=== PATIENT | female | born 1970 | race Caucasian/White ===

== ENCOUNTER 2016-11-25 13:48 | Emergency (ER) | payer SELFPAY ==
[2016-11-25 14:29] VITALS: BP 113/66; PULSE 85; TEMP 99.5; BMI 3411.0
--- NOTE | 2016-11-25 14:33 | EDPRACDOC ---
- General Information Chief Complaint: Toothache Stated Complaint: ABSCESS LIKE AREA LT LOWER JAW Time Seen by Provider: 11/25/16 14:28 Home Medications: Home Medications Hydrocodone/Acetaminophen [Lortab 5-325 mg Tablet] 1 each PO Q4H PRN #15 tablet 09/29/16 Ketorolac Tromethamine [Toradol] 10 mg PO Q6H PRN #20 tab 09/29/16 Amoxicillin Trihydrate [Amoxicillin] 500 mg PO TID #21 tab 11/25/16 Hydrocodone Bit/Acetaminophen [Hydrocodon-Acetaminophen 5-325] 1 tab PO Q6 PRN # 15 tab 11/25/16 Allergies/Adverse Reactions: Allergies Allergy/AdvReac Type Severity Reaction Status Date / Time No Known Allergies Allergy Verified 09/29/16 05:10 - History of Present Illness Onset: 2 DAYS HPI: PT COMPLAINS OF PAIN IN LEFT LOWER TOOTH AND JAW WITH SWELLING, WORSENING X 2 DAYS, USING MOTRIN WITHOUT RELIEF, NO FEVER OR CHILLS, NO N/V/D. Pain Severity: Reports: Severe Relevant History of: Reports: None Modifying Factors: improves with: Heat, Cold, Chewing. worse with: Anagelsics Associated Signs and Symptoms: Denies: Fever, Chills, Earache, Sore Throat ED Past Medical History - History Reviewed Yes Nurses notes reviewed and agree except as marked - Patient Medical History Psychological History: Reports: Depression - Social Medical History Smoking Status: Heavy tobacco smoker (5 or more cigarettes/day or daily pipe/ cigar) ETOH: Social Substance Abuse: None EDM Review of Systems - Review of Systems Constitutional: negative: Chills, Fever Eyes: negative: Blurred Vision, Double Vision Ears: negative: Drainage Throat: negative: Pain Nose: negative: Congestion, Discharge Mouth: Tooth Pain Respiratory: negative: Cough, Shortness of Breath, Wheezing Cardiovascular: negative: Chest Pain Gastrointestinal: negative: Diarrhea, Nausea, Pain, Vomiting Genitourinary: negative: Dysuria, Frequency Neurological: negative: Dizziness, Headache, Numbness, Weakness Musculoskeletal: No Symptoms Reported Integumentary: No Symptoms Reported - Physical Exam Constitutional: Alert (Awake), No apparent distress Oriented to: Time, Person, Place Last recorded Vital Signs: Last Vital Signs Temp 99.5 F 11/25/16 14:28 Pulse 85 11/25/16 14:28 Resp 18 11/25/16 14:28 BP 113/66 11/25/16 14:28 Pulse Ox 94 11/25/16 14:28 Oxygen Pulse Oxygen Saturation 94 O2 Device Room Air Oxygen Flow Rate Fraction of Inspired Oxygen ( FIO2) - HEENT Head: Normal ( normocephalic) Eye Exam: Normal (PERRL, EOMI, Sclera white) Oropharynx: Normal (Pharynx:Moist without exudate,Gums-no swelling) Tympanic Membrane: Normal ENT EAC: Normal TMJ: Normal Nose: No Symptoms Reported (septum midline) Neck: Normal (FROM, trachea at midline) - Respiratory/Cardiovascular Respiratory: Normal - CTA (BBS clear to auscultation without adventitious sounds ) Cardiovascular: Normal (RRR without murmur, gallop or rub) - Integumentary Skin: Normal, Warm, Dry Lymphatics: Normal (no adenopathy) - Neurologic Memory Impaired: Normal Motor Function: Normal (Normal tone, Pulses 2+ No cyanosis or edema, FROM) Cranial Nerve: Normal (CN II-X11 intact sensation, strength 5/5) Cerebellar: Normal Mood Description: Normal Perception: Normal ED Tooth Problem Exam - HEENT Face: Swelling, Tender Teeth: Left: Molar-2 Lower, Molar-3 Lower Gingiva: Tender, Swelling, Red. negative: Pointing, Draining, Necrotizing Palate: Normal. negative: Soft, Hard Mouth Range of Motion: Normal Sinuses: Normal Oropharynx: Normal Neck: Normal - Differential Diagnosis Periapical Abscess, Periodontal Abscess Decision Time to Discharge: 14:32 - Departure Disposition: Home Condition: Stable Final Diagnosis: Dental abscess (peridontal) Instructions: Dental Abscess (ED) Education/Counseling Given To: Patient Education/Counseling Given Regarding: Diagnosis, Treatment, Prognosis, Follow Up Referrals: Alexsander Bui MD [Staff Physician] - One Week Prescriptions: Amoxicillin Trihydrate [Amoxicillin] 500 mg PO TID #21 tab Hydrocodone Bit/Acetaminophen [Hydrocodon-Acetaminophen 5-325] 1 tab PO Q6 PRN # 15 tab PRN Reason: Pain Additional Instructions: Tooth Problem: You must follow up with a dentist as soon as possible, you may contact the [facility] at [phone] for assistance.
== END 2016-11-25 14:40 | disposition home or self-care (01) ==
LOC: EDMC 13:48
DX: K04.7 Periapical abscess without sinus (principal)
CPT/HCPCS: 99282